=== PATIENT | male | born 1950 | race Caucasian/White ===

== ENCOUNTER 2021-10-09 07:16 | Inpatient (IN) | payer MEDICARE, SELFPAY ==
[2021-10-09] VITALS (20 sets, daily range): BP systolic 143–163; BP diastolic 57–82; PULSE 82–150; RESP 18–30; TEMP 35.9–36.4; O2SAT 87–98; BMI 26.3
--- NOTE | ~2021-10-09 | XR_ITS ---
EXAMINATION: XR chest 1V portable INDICATION: Cough TECHNIQUE: Portable AP chest at 0740 hours COMPARISON: None available FINDINGS: There are patchy airspace opacities throughout all lung zones. No pleural effusion or pneum othorax is identified. The heart size is normal. IMPRESSION: 1. Diffuse lung disease, likely pneumonia. Reviewed, dictated and finalized at location A. BUILDER SUPERVISOR
--- NOTE | ~2021-10-09 | XR_ITS ---
EXAMINATION: XR chest 1V portable DATE: 10/10/2021 15:07 INDICATION: Shortness of breath TECHNIQUE: frontal view of the chest was obtained. COMPARISON: Chest radiograph and CT dated 10/09/2021 FINDINGS: No interval change in diffuse patchy airspace opacities throughout both lungs. No pleural effusion or pneumothorax. The cardiomediastinal silhouette is normal. Visualized bones and soft tissues are unre markable. IMPRESSION: 1. Unchanged diffuse bilateral lung disease which could represent pneumonia and/or pulmonary edema. Reviewed, dictated and finalized at location A. CATTLE FARM MANAGER IMPRESSION: 1. Unchanged diffuse bilateral lung disease which could represent pneumonia and /or pulmonary edema.
--- NOTE | ~2021-10-09 | CT_ITS ---
EXAMINATION: CTA chest PE protocol DATE: 10/09/2021 09:45 INDICATION: Cough and hypoxia TECHNIQUE: Computed tomography angiography (CTA) of the chest was performed with 100 mL Omnipaque-350 intravenous contrast timed to evaluate the pulmonary arteries. Coronal maximum intensity projection 3D-reconstructions were created by the technologist. The dose-length product (DLP) was 284.02 mGy-cm. Automated exposure control and iterative reconstruction technique were employed. COMPARISON: None. FINDINGS: The pulmonary arteries are well-opacified. No pulmonary embolism is identified. There are g roundglass opacities throughout all lung zones. There is no pleural effusion or pneumothorax. There i s bilateral hilar and mediastinal lymphadenopathy. The heart size is normal. A small sliding hiatal h ernia is noted. IMPRESSION: 1. No pulmonary embolus. 2. Diffuse lung disease, consistent with pneumonia. Reviewed, dictated and finalized at location A. RONMENTAL INSPECTOR
--- NOTE | ~2021-10-09 | XR_ITS ---
EXAMINATION: XR chest 1V portable EXAM DATE: 10/16/2021 10:18 INDICATION: post covid pneumonia . TECHNIQUE: Portable AP frontal chest x-ray was obtained. Comparison is made to prior examination from 10/14/2021. FINDINGS: Moderate amount of patchy ill-defined bilateral airspace disease, consistent with COVID pne umonia. Difficult to appreciate any significant interval change in scope of disease, but there may be slightly more confluence to some opacified areas. There is no pneumothorax suspected. There are no p leural effusions. Cardiomediastinal silhouette is normal. There is aortic arteriosclerosis. There are no osseous abnormalities identified. IMPRESSION: Moderate amount of COVID pneumonia. Reviewed, dictated and finalized at location B. PREVENTION GUARD
--- NOTE | ~2021-10-09 | CT_ITS ---
EXAMINATION:CT diagnostic chest wo con DATE: 10/16/2021 08:13 INDICATION: Right middle lobe necrotizing pneumonia. TECHNIQUE: Computed tomography (CT) of the chest was performed without intravenous contrast. Automate d exposure control and iterative reconstruction technique were employed. The dose-length product (DLP ) was 287.37 mGy-cm. COMPARISON: Chest CT 10/09/2021 FINDINGS: Motion artifact is noted. There are airspace and groundglass opacities and septal thickenin g in all lobes. There are subpleural cystic areas in the upper lobes, likely emphysema given the smok ing history. No pleural effusion. The heart size is normal. There are coronary artery calcifications. No pericardial effusion. There is a small sliding hiatal hernia. There is a 6 mm cyst in the liver. There is mild thoracic spondylosis. IMPRESSION: 1. Diffuse lung disease with slight improvement in left upper lobe from 10/09/21. The differential [place] gnosis includes pneumonia (especially COVID-19 pneumonia), hypersensitivity pneumonitis, and nonspeci fic interstitial pneumonia. 2. Mild emphysema. 3. Small sliding hiatal hernia. Reviewed, dictated and finalized at location A. ET RISK ANALYST IMPRESSION: 1. Diffuse lung disease with slight improvement in left upper lobe from 10/09/21 . The differential diagnosis includes pneumonia (especially COVID-19 pneumonia) , hypersensitivity pneumonitis, and nonspecific interstitial pneumonia. 2. Mild emphysema. 3. Small sliding hiatal hernia.
--- NOTE | ~2021-10-09 | XR_ITS ---
XR chest 2V 10/14/2021 08:11 Indication: Shortness of breath. Interstitial lung disease. Procedure: PA and lateral views of the chest Comparison: 10/12/2021 Findings: Extensive patchy bilateral airspace disease, compatible with pneumonia. No pleural effusion or pneumothorax. No pneumothorax. No acute osseous abnormality. Impression: 1: Extensive patchy bilateral airspace disease, compatible with pneumonia. Reviewed, dictated and finalized at location A. Y PUSHER Impression: 1: Extensive patchy bilateral airspace disease, compatible with pneumonia.
--- NOTE | ~2021-10-09 | XR_ITS ---
EXAMINATION: XR chest 1V portable EXAM DATE: 10/12/2021 05:31 INDICATION: ILD . TECHNIQUE: Portable AP frontal chest x-ray was obtained. Comparison is made to prior examination from 10/10/2021. FINDINGS: Moderate amount of bilateral ill-defined airspace disease probably pneumonia correlating wi th prior CT scan 3 days ago. No significant interval change. Cardiomediastinal silhouette is normal. There is no pneumothorax suspected. There are no pleural effusions. There are no osseous abnormalitie s identified. There is aortic arteriosclerosis. IMPRESSION: Moderate amount of bilateral airspace disease probably pneumonia. Reviewed, dictated and finalized at location A. ING ASSISTANTS TEACHER
--- NOTE | 2021-10-09 07:34 | ECG_ITS ---
Measurements Intervals [place] Rate: 75 P: 50 ID: [id number] QRS: -28 QRSD: 84 T: 34 QT: 361 QTc: 405 Interpretive Statements SINUS RHYTHM WITH SINUS ARRHYTHMIA BASELINE ARTIFACT- II, III, AVR, AVF, V2-V6 NORMAL ECG Electronically Signed On 10-09-2021 8:57:51 VOCAL ARTIST by Lisandro Tsai D.O.
[2021-10-09 08:33] LABS: Basophils Absolute Auto 0.1 K/mm3 (0.0-0.1); Basophils Percent Auto 0.6 % (0.2-1.2); Eosinophils Absolute Auto 1.1 K/mm3 (0-0.3); Eosinophils Percent Auto 8.6 % (0-4.4); Hematocrit 35.8 % (42.0-52.0); Hemoglobin 11.8 g/dL (14.0-18.0); Immature Granulocyte Absolute 0.04 K/mm3 (0.00-0.031); Immature Granulocyte Percent A 0.3 % (0-0.5); Lymphocytes Absolute Auto 1.19 K/mm3 (0.9-3.2); Lymphocytes Percent Auto 9.7 % (18.3-44.2); Mean Platelet Volume 9.5 fl (7.4-10.4); Monocytes Absolute Auto 1.1 K/mm3 (0.1-0.6); Neutrophils Absolute Auto 8.8 K/mm3 (1.3-6.7); Neutrophils Percent Auto 71.8 % (45.5-73.1); Platelet Count Result 303 k/mm3 (150-375); Red Blood Count 3.81 M/mm3 (4.6-6.20); White Blood Count 12.3 K/mm3 (4.5-10.0)
[2021-10-09 08:36] LABS: Add Urine Microscopic? NO; Appearance Urine Clear (Clear); Bilirubin Urine Negative (Negative); Blood Urine Negative (Negative); Color Urine Straw (Yellow); Glucose Urine UA Negative (Negative); Ketones Urine Negative (Negative); Leukocyte Esterase Ur Negative LEU/UL (Negative); Nitrate Urine Negative (Negative); Protein Urine Negative (Negative); Specific Grav Ur 1.011 (1.001-1.035); Urobilinogen Urine Negative mg/dL (<2.0)
[2021-10-09 08:45] LABS: INR 1.2; Prothrombin Time 14.4 Seconds (11.1-14.7)
[2021-10-09 08:46] LABS: Partial Thromboplastin Time 35.2 SECONDS (22.3-36.8)
[2021-10-09 08:48] LABS: Lactic Acid Reflex 0.9 mmol/L (0.7-2.1)
[2021-10-09 08:49] LABS: Alanine Aminotransferase 27 U/L (4-50); Albumin Level 3.6 g/dL (3.5-5.1); Alkaline Phosphatase 75 U/L (38-126); Anion Gap 7 mmol/L (8-16); Aspartate Amino Transferase 49 U/L (17-59); Bilirubin,Total 0.8 mg/dL (0.2-1.3); Blood Urea Nitrogen 22 mg/dL (9-20); Calcium 8.2 mg/dL (8.4-10.2); Carbon Dioxide 23 mmol/L (22-30); Chloride 109 mmol/L (98-107); Estimated CRCL calculation 50 ml/min; Estimated Glomerular Filt Rate > 60; Glucose 109 mg/dL (65-110); Potassium 4.5 mmol/L (3.4-5.0); Sodium 139 mmol/L (137-145)
--- NOTE | 2021-10-09 08:57 | ED.GENADULT ---
HPI - General Adult General Chief complaint: Shortness of Breath/Dyspnea Stated complaint: COUGH, SOB Source: RN notes reviewed History of Present Illness HPI narrative: Patient presents emergency department from home for weakness. Patient states that he has had a dry cough for approximately 1 month that is been nonproductive states over the past 1 week he is becoming more weak and more short of breath worse with any activity he states that the last 3 days have been even more severe he denies any fevers or chills. States that he has chest pain with coughing only denies abdominal pain nausea vomiting or diarrhea. Patient is alert originally from [place] but has been up here working for [email or web address] Home Medications Medication Instructions Recorded Confirmed lisinopril 20 mg PO HS 10/09/21 10/09/21 Allergies Allergy/AdvReac Type Severity Reaction Status Date / Time No Known Allergies Allergy Verified 10/09/21 07:31 Review of Systems Review of Systems: Gen.: Denies fevers or chills ENT: Denies congestion Respiratory: See HPI CV: Reports chest pain with coughing GI: Denies abdominal pain nausea, emesis or diarrhea Musculoskeletal: Denies back pain or muscle pain Neuro: Reports weakness Skin: Denies rash Except as documented, all other systems reviewed and negative PMF Past Medical History Medical History (Updated 10/09/21 @ 10:10 by Roland Paez DO) Patient denies significant medical history Social History Social History (Updated 10/09/21 @ 09:59 by Roland Paez DO) Smoking status: Never smoker Exam Narrative: APPEARANCE: No acute distress, nontoxic, resting in bed EYES: EOMI HEENT: Normocephalic, atraumatic, OMM RESPIRATORY: No respiratory distress coarse breath sounds throughout the bilateral lung garcia no wheezing CARDIOVASCULAR: Regular rate and rhythm without murmurs rubs or gallops. ABDOMINAL: Soft, nontender, nondistended, no rebound or guarding MUSCULOSKELETAl: Moves all extremities. No clubbing, cyanosis or edema. NEURO: Awake and alert. Following commands, speech normal, no focal deficits SKIN:: Warm, dry. No rashes lesions or abrasions PSYCHIATRIC: Normal affect/mood, Course Course Emergency Course: Upon further discussion with the patient he states he did feel he is getting pneumonia about a week ago and had some old amoxicillin left over from a dental procedure and did take that with no relief Discussed with Dr. Adan presentation work-up agrees with admission at this time Discussed with patient and family results of workup and diagnosis. Discussed need for admission. Patient and family understand and agree to current treatment plan Vital Signs Vital signs: Vital Signs Temperature 97.5 F L 10/09/21 07:20 Pulse Rate 90 10/09/21 07:20 Respiratory Rate 30 H 10/09/21 07:20 Blood Pressure 159/77 H 10/09/21 07:20 Pulse Oximetry 96 10/09/21 07:20 Temperature 97.5 F L 10/09/21 07:20 Pulse Rate 82 10/09/21 09:01 Respiratory Rate 18 10/09/21 09:01 Blood Pressure 157/69 H 10/09/21 09:01 Pulse Oximetry 96 10/09/21 09:01 Medical Decision Making Vital Signs Vital Signs: Vital Signs Temperature 97.5 F L 10/09/21 07:20 Pulse Rate 90 10/09/21 07:20 Respiratory Rate 30 H 10/09/21 07:20 Blood Pressure 159/77 H 10/09/21 07:20 Pulse Oximetry 96 10/09/21 07:20 Temperature 97.5 F L 10/09/21 07:20 Pulse Rate 82 10/09/21 09:01 Respiratory Rate 18 10/09/21 09:01 Blood Pressure 157/69 H 10/09/21 09:01 Pulse Oximetry 96 10/09/21 09:01 Lab Data Result diagrams: 10/09/21 08:17 10/09/21 08:17 Labs: Lab Results 10/09/21 10/09/21 10/09/21 Range/Units 08:04 08:17 08:17 WBC 12.3 H (4.5-10.0) K/mm3 RBC 3.81 L (4.6-6.20) M/mm3 Hgb 11.8 L (14.0-18.0) g/dL Hct 35.8 L (42.0-52.0) % MCV 94.0 (80-100) fl MCH 31.0 (26-34) pg MCHC 33.0 (32-36) g/dl
[2021-10-09 09:00] LABS: NT Pro B Type Natriuretic Pept 807 pg/mL (5-100); Troponin I 0.019 ng/mL (0.000-0.034)
[2021-10-09 09:46] LABS: SARS-CoV-2 RNA PCR Negative
--- NOTE | 2021-10-09 11:47 | ADMGEN ---
This patient, Matthew Mcgraw, was admitted to 3 [facility] Surg Room 319-01 at 1140. Patient/family oriented to hospital policies and general routines including ID bracelet, bed and alarms, visiting hours, pain management, procedures, bathroom and other care routines, personal items, smoking policy, room service/diet, and visiting hours. Information on how to activate the Rapid Response Team has been discussed. Patient/Family are encouraged to report perceived risks to care and to ask questions if they do not understand what they are told or what they should do.
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
[2021-10-09 14:41] LABS: Troponin I 0.017 ng/mL (0.000-0.034)
[2021-10-09] MEDS: ALBUTEROL SULFATE (*SP) AEROSOL 1 PUFF 2 PUFF INHALATION (15:16)
[2021-10-09] MEDS: IPRATROPIUM BR 0.02% INH SOLN 0.5 MG/2.5 ML VIAL INHALATION (19:41)
[2021-10-09] MEDS: ALBUTEROL SULFATE NEB 2.5 MG/0.5 ML INH 5 MG INHALATION (19:41)
[2021-10-09] MEDS: lisinopriL 20 MG TABLET PO (23:15)
[2021-10-09] MEDS: guaiFENesin 12 HR 600 MG TABCR PO (23:45)
[2021-10-10] VITALS (23 sets, daily range): BP systolic 154–165; BP diastolic 72–78; PULSE 86–128; RESP 20–44; TEMP 36.3–37.4; O2SAT 77–100
[2021-10-10] MEDS: IPRATROPIUM BR 0.02% INH SOLN 0.5 MG/2.5 ML VIAL INHALATION ×4 (02:10→20:30)
[2021-10-10] MEDS: ALBUTEROL SULFATE NEB 2.5 MG/0.5 ML INH 5 MG INHALATION ×4 (02:10→20:30)
--- NOTE | 2021-10-10 02:58 | PCRCNOTE ---
Locker Room Supervisor attemtped to instruct patient on Coronet and Incentive Spirometer. Patient states he is too tired to mess with it right now and wants to wait until morning after he rests.
[2021-10-10 06:51] LABS: Basophils Percent Auto 0.3 % (0.2-1.2); Eosinophils Absolute Auto 0.1 K/mm3 (0-0.3); Eosinophils Percent Auto 0.9 % (0-4.4); Hematocrit 33.6 % (42.0-52.0); Hemoglobin 11.3 g/dL (14.0-18.0); Immature Granulocyte Absolute 0.08 K/mm3 (0.00-0.031); Immature Granulocyte Percent A 0.6 % (0-0.5); Lymphocytes Absolute Auto 0.94 K/mm3 (0.9-3.2); Lymphocytes Percent Auto 6.8 % (18.3-44.2); Mean Corpuscular HGB Conc 33.6 g/dl (32-36); Mean Corpuscular Hemoglobin 30.7 pg (26-34); Mean Corpuscular Volume 91.3 fl (80-100); Mean Platelet Volume 9.7 fl (7.4-10.4); Monocytes Percent Auto 7.5 % (2.6-8.5); Neutrophils Absolute Auto 11.6 K/mm3 (1.3-6.7); Neutrophils Percent Auto 83.9 % (45.5-73.1); Platelet Count Result 300 k/mm3 (150-375); Red Blood Count 3.68 M/mm3 (4.6-6.20); White Blood Count 13.8 K/mm3 (4.5-10.0)
[2021-10-10 07:00] LABS: Anion Gap 6 mmol/L (8-16); Blood Urea Nitrogen 21 mg/dL (9-20); Calcium 8.2 mg/dL (8.4-10.2); Carbon Dioxide 26 mmol/L (22-30); Chloride 103 mmol/L (98-107); Estimated CRCL calculation 46 ml/min; Estimated Glomerular Filt Rate > 60; Glucose 113 mg/dL (65-110); Magnesium 1.9 mg/dL (1.6-2.3); Potassium 4.3 mmol/L (3.4-5.0); Sodium 135 mmol/L (137-145)
[2021-10-10 07:58] LABS: HIV 1/2 Ab P24 Ag Result Negative (Negative)
[2021-10-10] MEDS: ENOXAPARIN 40 MG/0.4 ML SYRINGE SUB-Q (09:38)
[2021-10-10] MEDS: guaiFENesin/CODEINE (*CRX) 200/20 MG 10 ML SYRUP PO ×2 (09:44→14:33)
--- NOTE | 2021-10-10 14:00 | PM.IMPN ---
Progress Note: A&P Assessment and Plan (1) Acute respiratory failure with hypoxia: Code(s): J96.01 - Acute respiratory failure with hypoxia Status: Acute Assessment and Plan: Requiring oxygen via nasal cannula Related to diffuse pneumonia. Wean oxygen as tolerated (2) Community acquired pneumonia: Code(s): J18.9 - Pneumonia, unspecified organism Status: Acute Assessment and Plan: Presumed community-acquired pneumonia. He has been started on ceftriaxone and azithromycin. Given the extent of his pneumonia, the longevity of his symptoms, and eosinophilia pulmonary consulted. S sputum culture Urine for strep pneumo and Legionella Will also order mycoplasma IgG and IgM, hypersensitivity pneumonitis panel, rheumatoid arthritis factor QUINTIN, IgE COVID negative 10/09/2021 Will hold lisinopril and switch it to losartan (3) Hypertension: Code(s): I10 - Essential (primary) hypertension Status: Acute Assessment and Plan: Blood pressures were reviewed and they have been running a bit high. Continue lisinopril and monitor daily. Additional Plan Former smoker History of asthma: Check IgE level, aspergillus antibody Subjective Date/time seen: 10/10/21 14:00 Interval history: HPI:This is a 71-year-old male, former smoker, with hypertension and asthma who presented to the emergency department today for evaluation of shortness of breath. He endorses a dry, nonproductive cough for approximately 1 month for which he was tested for COVID approximately 2 weeks ago and was negative. The last 1 week he has begun to feel worse with progressive weakness, generalized malaise, subjective fever, headache, and decreased appetite. His cough has intensified over the past 3 days and he has frequent coughing jags to the point where he will get short of breath. Chest x-ray and chest CT both showed diffuse lung disease in all lung zones, likely pneumonia; no evidence of pulmonary embolism. SARS-CoV-2 by PCR was negative. He has been taking [id number] cold and flu medications without much benefit. He is in the area from [place] and is working at [employer]. He has not had any sick contacts to his knowledge. He denies chemical exposure, dysphagia, and concerns for aspiration. He has a history of IV drug use decades ago and has no concerns for HIV. He is not on immunosuppressants. No history of autoimmune disease. 10/10/2021 she continues to have productive cough, remains afebrile reports shortness of breath denies any chest pain Review of Systems Review of Systems: All systems reviewed & are unremarkable except as noted in HPI and below (HPI) Exam Narrative: General: Moderately ill-appearing gentleman, in mild distress due to persistent cough HEENT: PERRL, EOMI. Sclerae anicteric. Tacky mucous membranes. Oropharynx clear. Neck: Supple. No lymphadenopathy. No nuchal rigidity. Respiratory: Frequent cough. Coarse lung sounds throughout with faint, scattered wheezing. Cardiovascular: Mildly Tachycardic with regular rhythm and S1-S2. Gastrointestinal: Abdomen is soft, nontender, and nondistended with positive bowel sounds. Skin: Warm and dry. No rash or lesions on limited exam. Extremities: No cyanosis, clubbing, or edema. Radial and pedal pulses intact. Neurological: Alert. Cranial nerves 2-12 are grossly intact. No gross focal deficits Psychiatric: Pleasant and cooperative with normal mood and affect. Judgment and insight intact. Objective Data Vital Signs Vital Signs: Vital Signs - 24 hr 10/09/21 15:07 10/09/21 15:17 10/09/21 15:18 Temperature Pulse Rate 150 H 123 H Respiratory Rate 28 H 24 H Blood Pressure Pulse Oximetry 87 L 91 92 10/09/21 15:21 10/09/21 15:25 10/09/21 16:00 Temperature Pulse Rate 118 H Respiratory Rate Blood Pressure Pulse Oximetry 98 98 10/09/21 16:05 10/09/21 18:18 10/09/21 19:44 Temperature Pulse Rate 104 H Respirator
[2021-10-10 14:33] LABS: Rheumatoid Factor < 8.6 IU/ML (<12)
--- NOTE | 2021-10-10 14:42 | PM.CNPUL ---
Assessment and Plan Assessment and plan (1) Acute respiratory failure with hypoxia: Code(s): J96.01 - Acute respiratory failure with hypoxia Status: Acute (2) Interstitial lung disease: Code(s): J84.9 - Interstitial pulmonary disease, unspecified Status: Acute Assessment and Plan: 71-year-old man presented with a subacute illness characterized by dry cough, and progressively increasing shortness of breath, that started after a flu-like illness approximately 6 weeks ago prior to this admission. It is not clear whether this flu-like illness was related to COVID 19 infection as patient did not get tested. To my interpretation, the chest CT showed extensive bilateral ground-glass opacities with mild bronchiectatic changes, absence of reticulation, in a non symmetrical pattern, mostly at the bases and also the apices. In addition to these changes, there are thin-walled cystic lesions especially in the right upper lobe as well as few lucent areas at the bases bilaterally that suggest lobular air trapping. The ILD pattern on the chest CT suggests either NSIP or subacute hypersensitivity pneumonitis. In favor of hypersensitivity pneumonitis are the lucent areas that suggest lobular air trapping as well as the cystic lesions. 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 Plan is as follows: continue with current regimen consists of a antibiotics, DVT prophylaxis, and cough suppressants. I ordered HP panel as well as serology to exclude underlying connective tissue disease. Will consider expiratory chest CT to confirm presence of air trapping. History of Present Illness History of Present Illness Consult date: 10/10/21 Chief complaint: community-acquired pneumonia,acute respiratory fa Narrative: This 71-year-old male presented with 1 month history of dry cough and progressively increasing shortness of breath. The patient was in his usual state of health until approximately 6 weeks ago when he started having flu-like symptoms with low-grade fever and upper respiratory tract symptoms. He did not have a test for COVID 19 infection. The patient took time off his work and after a few days he returned to work because he felt better. Several days after the acute episode of the flu like illness the patient started having dry cough. He had no fever chills sputum production or wheezing. He tried cough medications [id number] with no improvement. Subsequently he started having shortness of breath initially with exertion. Shortness of breath was not associated with chest pain palpitations orthopnea or hemoptysis. His shortness of breath progressively increased and patient presented to the emergency room. His past medical history is significant for hypertension. He also has history of back pain and knee pain but no history of joint pain or arthritis. At his current workplace he is not exposed to any organic agents. 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 Over the last 2 weeks the patient was tested for COVID on an outpatient basis and reportedly he tested negative. The patient currently has been complaining of dry cough. He has no wheezing chest pain sputum production, fever, chills, or orthopnea. He stated that since he was started on oxygen he feels better. He used to smoke but quit many years ago. He also has history of drug use when younger. Review of Systems Review of Systems: Patient reports no weight loss. He has no orthopnea chest pain palpitations. He has no acid reflux disease. He has no nausea vomiting diarrhea constipation. He has no urinary complaints. He has no skin rashes. He has no history of lower extremity edema. He has some low back stiffness and some knee stiffness but no a.m. hand stiffness. . patient was vaccinated with 2 doses for COVID 19 infection with the 2nd
[2021-10-10 15:02] LABS: Alveolar/Arterial O2 Gradient 610.4 mmHg; Base Excess ABG -1.4 mEq/l (+/-2.0); Device NON-REBREATHER MASK; Fractional Inspired Oxygen 100 %; HCO3 ABG 21.3 mEq/l (22.0-26.0); Modified Allen's Test Pass; Oxygen Saturation ABG 95.7 % (95.0-100.0); Oxyhemoglobin 93.8 % THb (90.0-100.0); PCO2 ABG 29.8 mmHg (35.0-45.0); PO2 ABG 72.8 mmHg (80.0-100.0); PO2 FiO2 Ratio Arterial Blood 0.73 %; Site Drawn LEFT RADIAL; Total Hemoglobin 12.1 g/dL (12.0-18.0); pH ABG 7.472 (7.350-7.450)
[2021-10-10] MEDS: methylPREDNISolone SOD SUCC 125 MG VIAL IV PUSH (15:53)
[2021-10-10] MEDS: FUROSEMIDE INJ 40 MG/4 ML VIAL IV PUSH (15:53)
[2021-10-10 17:28] LABS: Lactate Dehydrogenase 1403 U/L (313-618)
[2021-10-10 17:32] LABS: CRP 23.1 mg/dL (<1.0)
[2021-10-10] MEDS: methylPREDNISolone SOD SUCC 125 MG VIAL 60 MG IV PUSH (20:42)
[2021-10-11] VITALS (21 sets, daily range): BP systolic 97–191; BP diastolic 68–79; PULSE 90–113; RESP 18–24; TEMP 35.6–36.4; O2SAT 90–98
--- NOTE | 2021-10-11 | ECHO_ITS ---
Patient Info Name: Matthew Mcgraw Age: 71 years : 1950 Gender: Male Ht: 64 in Wt: 151 lbs BSA: 1.77 m2 HR: 91 bpm BP: 167 / 73 mmHg Heart Rhythm: Sinus Rhythm Technical Quality: Fair Exam Date: 10/11/2021 12:58 PM Exam Location: [facility] Patient Status: Inpatient Admit Date: 10/10/2021 Staff Ordering Physician: Antonio Adan MD Process Project Engineer: Miracle Bradley RDCS Attending Provider: Antonio Adan MD Exam Type: CA echo doppler color flow Study Info Indications - Shortness of breath Complete two-dimensional, color flow and Doppler transthoracic echocardiogram is performed. Summary 1. Complete two-dimensional, color flow and Doppler transthoracic echocardiogram is performed. 2. Left ventricular chamber dimension is normal. 3. Left ventricular systolic function is normal, estimated at 60-65%. 4. The left ventricular diastolic function is grade I diastolic dysfunction. 5. E/e' 8 is minimally elevated. 6. There is mild aortic valve sclerosis. 7. Mild pulmonary hypertension, estimated pulmonary arterial systolic pressure is 45 mmHg. Left Ventricle E/e' 8 is minimally elevated. Left ventricular chamber dimension is normal. Left ventricular systolic function is normal, estimated at 60-65%. The left ventricular diastolic function is grade I diastolic dysfunction. Right Ventricle Right ventricular systolic function is normal and with normal TAPSE 2.4 cm. Right ventricular chamber dimension is normal. Left Atria Left atrial chamber dimension is normal. Right Atria Right atrial chamber dimension is normal. Aortic Valve The aortic valve is trileaflet. There is mild aortic valve sclerosis. There is no aortic valve stenosis. There is no aortic valve regurgitation. Pulmonic Valve There is no pulmonic regurgitation. Mitral Valve There is no mitral valve stenosis. There is no mitral valve regurgitation. Tricuspid Valve There is no tricuspid valve regurgitation. Mild pulmonary hypertension, estimated pulmonary arterial systolic pressure is 45 mmHg. Pericardium/Pleural There is no pericardial effusion. Inferior Vena Cava Normal inferior vena cava with >50% collapse upon inspiration consistent with normal right atrial pressure, 5 mmHg. Aorta The aortic root size at the sinus of Valsalva is normal. Left Ventricular Outflow Tract Name Value Normal LVOT 2D LVOT Diameter 2.0 cm LVOT Doppler LVOT Peak Gradient 8 mmHg LVOT Mean Gradient 3 mmHg LVOT VTI 23 cm LVOT VTI/AV VTI Ratio 0.8 LVOT Stroke Volume 69 ml LVOT CO 6.3 l/min LVOT CI 3.6 l/min/m2 Pulmonic Valve Name Value Normal RVOT Doppler
[2021-10-11] MEDS: methylPREDNISolone SOD SUCC 125 MG VIAL 60 MG IV PUSH ×3 (00:14→17:26)
[2021-10-11 00:24] LABS: Glucose Point of Care 288 mg/dl (65-105)
[2021-10-11] MEDS: ALBUTEROL SULFATE NEB 2.5 MG/0.5 ML INH 5 MG INHALATION ×4 (02:00→19:41)
[2021-10-11] MEDS: IPRATROPIUM BR 0.02% INH SOLN 0.5 MG/2.5 ML VIAL INHALATION ×4 (02:00→19:41)
[2021-10-11] MEDS: WATER FOR IRRIGATION, STERILE 1,000 ML BOTTLE 1000 ML (03:11)
[2021-10-11 04:37] LABS: Basophils Percent Auto 0.1 % (0.2-1.2); Hematocrit 34.6 % (42.0-52.0); Hemoglobin 11.5 g/dL (14.0-18.0); Immature Granulocyte Absolute 0.07 K/mm3 (0.00-0.031); Immature Granulocyte Percent A 0.7 % (0-0.5); Lymphocytes Absolute Auto 0.65 K/mm3 (0.9-3.2); Lymphocytes Percent Auto 6.3 % (18.3-44.2); Mean Corpuscular HGB Conc 33.2 g/dl (32-36); Mean Corpuscular Hemoglobin 30.5 pg (26-34); Mean Corpuscular Volume 91.8 fl (80-100); Mean Platelet Volume 9.5 fl (7.4-10.4); Monocytes Absolute Auto 0.2 K/mm3 (0.1-0.6); Monocytes Percent Auto 1.6 % (2.6-8.5); Neutrophils Absolute Auto 9.5 K/mm3 (1.3-6.7); Neutrophils Percent Auto 91.3 % (45.5-73.1); Platelet Count Result 295 k/mm3 (150-375); Red Blood Count 3.77 M/mm3 (4.6-6.20); White Blood Count 10.4 K/mm3 (4.5-10.0)
[2021-10-11 04:55] LABS: Alanine Aminotransferase 25 U/L (4-50); Albumin Level 3.5 g/dL (3.5-5.1); Alkaline Phosphatase 72 U/L (38-126); Anion Gap 7 mmol/L (8-16); Aspartate Amino Transferase 44 U/L (17-59); Blood Urea Nitrogen 30 mg/dL (9-20); Calcium 8.5 mg/dL (8.4-10.2); Carbon Dioxide 28 mmol/L (22-30); Chloride 101 mmol/L (98-107); Estimated CRCL calculation 55 ml/min; Estimated Glomerular Filt Rate > 60; Glucose 297 mg/dL (65-110); Potassium 4.5 mmol/L (3.4-5.0); Sodium 136 mmol/L (137-145)
[2021-10-11] MEDS: ACETAMINOPHEN/CODEINE ELIXIR (*CRX) 120-12 MG/5 ML UDC PO (08:45)
[2021-10-11] MEDS: ENOXAPARIN 40 MG/0.4 ML SYRINGE SUB-Q (08:47)
--- NOTE | 2021-10-11 09:49 | PM.PNPUL ---
Progress Note: A&P Assessment and Plan (1) Interstitial lung disease: Code(s): J84.9 - Interstitial pulmonary disease, unspecified Status: Acute Assessment and Plan: 71-year-old man presented with a subacute illness characterized by dry cough, and progressively increasing shortness of breath, that started after a flu-like illness approximately 6 weeks ago prior to this admission. It is not clear whether this flu-like illness was related to COVID 19 infection as patient did not get tested. Chest CT showed bilateral extensive ground-glass infiltrates, with mild bronchiectatic changes, rare cystic lesions, and also lesions consistent with lobular air trapping. The patient has had long history of woodworking. on the basis of the patient's history, the subacute tempo of the disease, and the chest CT findings, the differential diagnosis includes hypersensitivity pneumonitis, NSIP and less likely organizing pneumonia post COVID. Patient has been on antibiotics for possible bacterial coinfection. Chest x-ray taken last night showed no significant change. physical exam is also unchanged from yesterday. Immunology tests and serology screening pending. Agree with steroid treatment. Will continue with current IV dose for today and decrease it in a.m.. (2) Acute respiratory failure with hypoxia: Code(s): J96.01 - Acute respiratory failure with hypoxia Status: Acute Subjective Date/time seen: 10/11/21 09:49 Patient had intense cough last night. oxygen flow increased to maintain O2 saturation over 90%. Patient was started on IV steroids by the hospitalist. Currently he feels better. cough a lot less this morning. He has no other respiratory symptoms. No fever chills or wheezing. He denied having chest pain or orthopnea. Review of Systems Review of Systems: All systems reviewed & are unremarkable except as noted in HPI and below (HPI) Exam Narrative: GENERAL APPEARANCE: Well developed, well nourished, alert and cooperative, and appears to be in mild respiratory distress related to constant coughing while on supplemental oxygen via nasal cannula SKIN: Inspection of the skin reveals no rashes, ulcerations or petechiae. HEENT: Sclerae anicteric and conjunctivae pink and moist. Extraocular movements were intact and pupils were equal, round, and reactive to light. The oral mucosa, hard and soft palate, tongue and posterior pharynx were normal. NECK: Supple. There was no thyroid enlargement, and no tenderness, or masses were felt. CHEST: Normal AP diameter and normal contour without any kyphoscoliosis. LUNGS: crackles at bases posteriorly no wheezing CARDIAC: There was a regular rate and rhythm without any murmurs, gallops, rubs. ABDOMEN: Soft and nontender with normal bowel sounds. There was no organomegaly. LYMPH NODES: No lymphadenopathy was appreciated in the neck. EXTREMITIES: No cyanosis, clubbing or edema. NEUROLOGIC: Alert and oriented x 3. Normal affect. Objective Data Vital Signs Vital Signs: Vital Signs - 24 hr 10/10/21 12:00 10/10/21 13:58 10/10/21 14:00 Temperature 36.7 C Pulse Rate 91 105 H 128 H Respiratory Rate 24 H 22 H Blood Pressure 154/78 H Pulse Oximetry 90 10/10/21 14:40 10/10/21 14:41 10/10/21 14:45 Temperature Pulse Rate 123 H Respiratory Rate Blood Pressure Pulse Oximetry 77 L 89 L 95 10/10/21 15:15 10/10/21 15:58 10/10/21 16:00 Temperature Pulse Rate 116 H 123 H 117 H Respiratory Rate 24 H Blood Pressure Pulse Oximetry 96 100 10/10/21 17:05 10/10/21 20:00 10/10/21 20:24 Temperature 36.3 C L Pulse Rate 97 97 Respiratory Rate 20 20 Blood Pressure 162/74 H Pulse Oximetry 94 98 98 10/10/21 20:30 10/10/21 20:40 10/11/21 00:00 Temperature Pulse Rate 86 86 94 Respiratory Rate 24 H 24 H Blood Pressure Pulse Oximetry 94 10/11/21 00:38 10/11/21 00:52 10/11/21 02:00 Temperature 35.6 C L Pulse
--- NOTE | 2021-10-11 11:29 | PM.IMPN ---
Progress Note: A&P Assessment and Plan (1) Acute respiratory failure with hypoxia: Code(s): J96.01 - Acute respiratory failure with hypoxia Status: Acute Assessment and Plan: Requiring oxygen via nasal cannula Related to diffuse pneumonia. Wean oxygen as tolerated Needed BiPAP temporarily 10/10/2021 now off and on high-flow oxygen nasal cannula requiring 15 L yesterday down to 90 today Will check echo (2) Community acquired pneumonia: Code(s): J18.9 - Pneumonia, unspecified organism Status: Acute Assessment and Plan: Presumed community-acquired pneumonia. He has been started on ceftriaxone and azithromycin. Given the extent of his pneumonia, the longevity of his symptoms, and eosinophilia pulmonary consulted. S sputum culture Urine for strep pneumo and Legionella Will also order mycoplasma IgG and IgM, hypersensitivity pneumonitis panel, rheumatoid arthritis factor QUINTIN, IgE COVID negative 10/09/2021 Will hold lisinopril and switch it to losartan. He did not receive losartan yesterday will start from this morning pressure and elevated His and family markers with LDH CRP ferritin are elevated (3) Hypertension: Code(s): I10 - Essential (primary) hypertension Status: Acute Assessment and Plan: Blood pressures were reviewed and they have been running a bit high. Continue lisinopril and monitor daily. Switched to losartan Additional Plan Former smoker History of asthma: Check IgE level, aspergillus antibody Subjective Date/time seen: 10/11/21 11:29 Interval history: HPI:This is a 71-year-old male, former smoker, with hypertension and asthma who presented to the emergency department today for evaluation of shortness of breath. He endorses a dry, nonproductive cough for approximately 1 month for which he was tested for COVID approximately 2 weeks ago and was negative. The last 1 week he has begun to feel worse with progressive weakness, generalized malaise, subjective fever, headache, and decreased appetite. His cough has intensified over the past 3 days and he has frequent coughing jags to the point where he will get short of breath. Chest x-ray and chest CT both showed diffuse lung disease in all lung zones, likely pneumonia; no evidence of pulmonary embolism. SARS-CoV-2 by PCR was negative. He has been taking [id number]-gfnwipl cold and flu medications without much benefit. He is in the area from [place] and is working at [employer]. He has not had any sick contacts to his knowledge. He denies chemical exposure, dysphagia, and concerns for aspiration. He has a history of IV drug use decades ago and has no concerns for HIV. He is not on immunosuppressants. No history of autoimmune disease. 10/10/2021 she continues to have productive cough, remains afebrile reports shortness of breath denies any chest pain 10/11/2021 no overnight events. He is feeling lot better today cough has improved he Peed out quite a bit yesterday no chest pain heart rate has improved use BiPAP for an hour or so yesterday Review of Systems Review of Systems: All systems reviewed & are unremarkable except as noted in HPI and below (HPI) Exam Narrative: General: Moderately ill-appearing gentleman, in no acute distress HEENT: PERRL, EOMI. Sclerae anicteric. Tacky mucous membranes. Oropharynx clear. Neck: Supple. No lymphadenopathy. No nuchal rigidity. Respiratory: Cough is infrequent today Coarse lung sounds throughout no wheezes no conversational dyspnea noted Cardiovascular: Mildly Tachycardic with regular rhythm and S1-S2. Gastrointestinal: Abdomen is soft, nontender, and nondistended with positive bowel sounds. Skin: Warm and dry. No rash or lesions on limited exam. Extremities: No cyanosis, clubbing, or edema. Radial and pedal pulses intact. Neurological: Alert. Cranial nerves 2-12 are grossly intact. No gross focal deficits Psychiatric: Pleasant and cooperative with normal mood and affect. [place]
[2021-10-11] MEDS: LOSARTAN POTASSIUM 50 MG TABLET PO (14:37)
--- NOTE | 2021-10-11 14:51 | PCCCNOTE ---
On 10/11/21, the student, Lilo Snow, provided care and completed [facility] documentation on this patient. I have reviewed the student's documentation and agree with the findings.
--- NOTE | 2021-10-11 19:48 | PCRCNOTE ---
Pt does not use CPAP or BiPAP at home, was placed on BiPAP for respiratory distress earlier in hospital stay. Pt is currently resting comfortably on 8L HFNC and does not require BiPAP support. Pt was advised to let his nurse know if he begins to feel any shortness of breath so that the nurse can contact Respiratory to evaluate and potentially place pt on BiPAP.
[2021-10-12] VITALS (24 sets, daily range): BP systolic 114–154; BP diastolic 33–74; PULSE 85–110; RESP 14–28; TEMP 35.5–36.5; O2SAT 91–99
[2021-10-12] MEDS: ACETAMINOPHEN/CODEINE ELIXIR (*CRX) 120-12 MG/5 ML UDC PO (00:23)
[2021-10-12] MEDS: IPRATROPIUM BR 0.02% INH SOLN 0.5 MG/2.5 ML VIAL INHALATION ×4 (02:35→19:48)
[2021-10-12] MEDS: ALBUTEROL SULFATE NEB 2.5 MG/0.5 ML INH 5 MG INHALATION ×4 (02:35→19:48)
[2021-10-12 04:49] LABS: Basophils Percent Auto 0.1 % (0.2-1.2); Hematocrit 34.1 % (42.0-52.0); Hemoglobin 11.2 g/dL (14.0-18.0); Immature Granulocyte Absolute 0.14 K/mm3 (0.00-0.031); Immature Granulocyte Percent A 0.7 % (0-0.5); Lymphocytes Absolute Auto 0.88 K/mm3 (0.9-3.2); Lymphocytes Percent Auto 4.3 % (18.3-44.2); Mean Corpuscular HGB Conc 32.8 g/dl (32-36); Mean Corpuscular Hemoglobin 30.8 pg (26-34); Mean Corpuscular Volume 93.7 fl (80-100); Mean Platelet Volume 9.8 fl (7.4-10.4); Monocytes Absolute Auto 0.9 K/mm3 (0.1-0.6); Monocytes Percent Auto 4.5 % (2.6-8.5); Neutrophils Absolute Auto 18.7 K/mm3 (1.3-6.7); Neutrophils Percent Auto 90.4 % (45.5-73.1); Platelet Count Result 328 k/mm3 (150-375); Red Blood Count 3.64 M/mm3 (4.6-6.20); Red Cell Distribution Width 12.2 % (11.5-14.5); White Blood Count 20.7 K/mm3 (4.5-10.0)
[2021-10-12 05:02] LABS: Alanine Aminotransferase 28 U/L (4-50); Albumin Level 3.4 g/dL (3.5-5.1); Alkaline Phosphatase 71 U/L (38-126); Anion Gap 7 mmol/L (8-16); Aspartate Amino Transferase 36 U/L (17-59); Bilirubin,Total 0.5 mg/dL (0.2-1.3); Blood Urea Nitrogen 38 mg/dL (9-20); Calcium 8.7 mg/dL (8.4-10.2); Carbon Dioxide 28 mmol/L (22-30); Chloride 104 mmol/L (98-107); Estimated CRCL calculation 46 ml/min; Estimated Glomerular Filt Rate > 60; Glucose 241 mg/dL (65-110); Magnesium 2.2 mg/dL (1.6-2.3); Sodium 139 mmol/L (137-145)
[2021-10-12] MEDS: ENOXAPARIN 40 MG/0.4 ML SYRINGE SUB-Q (08:40)
[2021-10-12] MEDS: LOSARTAN POTASSIUM 50 MG TABLET PO (08:41)
[2021-10-12] MEDS: methylPREDNISolone SOD SUCC 125 MG VIAL 60 MG IV PUSH (08:41)
[2021-10-12 08:56] LABS: Glucose Point of Care 171 mg/dl (65-105)
--- NOTE | 2021-10-12 11:46 | PM.IMPN ---
Progress Note: A&P Assessment and Plan (1) Acute respiratory failure with hypoxia: Code(s): J96.01 - Acute respiratory failure with hypoxia Status: Acute Assessment and Plan: Requiring oxygen via nasal cannula Related to diffuse pneumonia. Wean oxygen as tolerated Needed BiPAP temporarily 10/10/2021 now off and on high-flow oxygen nasal cannula requiring 15 L yesterday down to 90 today Echocardiogram reviewed 10/11/2021: EF 60-65% grade 1 diastolic dysfunction E by E prime minimally elevated mild aortic sclerosis mild pulmonary hypertension no other valvular abnormalities noted. (2) Community acquired pneumonia: Code(s): J18.9 - Pneumonia, unspecified organism Status: Acute Assessment and Plan: Presumed community-acquired pneumonia. He has been started on ceftriaxone and azithromycin. Given the extent of his pneumonia, the longevity of his symptoms, and eosinophilia pulmonary consulted. S sputum culture Urine for strep pneumo and Legionella Will also order mycoplasma IgG and IgM, hypersensitivity pneumonitis panel, rheumatoid arthritis factor QUINTIN, IgE COVID negative 10/09/2021 Will hold lisinopril and switch it to losartan. Since start of losartan blood pressure has been improved His and family markers with LDH CRP ferritin are elevated Leukocytosis worsened today likely due to steroid. Continue to monitor and recheck in the morning clinically improving (3) Hypertension: Code(s): I10 - Essential (primary) hypertension Status: Acute Assessment and Plan: Blood pressures were reviewed and they have been running a bit high. Continue lisinopril and monitor daily. Switched to losartan Blood pressure is improved since start of losartan Additional Plan Former smoker History of asthma: Check IgE level, aspergillus antibody All inflammatory markers and panel is been pending reviewed labs Will move him to medical floor with telemetry today Discussed with philosophy professor at bedside Subjective Date/time seen: 10/12/21 11:46 Interval history: HPI:This is a 71-year-old male, former smoker, with hypertension and asthma who presented to the emergency department today for evaluation of shortness of breath. He endorses a dry, nonproductive cough for approximately 1 month for which he was tested for COVID approximately 2 weeks ago and was negative. The last 1 week he has begun to feel worse with progressive weakness, generalized malaise, subjective fever, headache, and decreased appetite. His cough has intensified over the past 3 days and he has frequent coughing jags to the point where he will get short of breath. Chest x-ray and chest CT both showed diffuse lung disease in all lung zones, likely pneumonia; no evidence of pulmonary embolism. SARS-CoV-2 by PCR was negative. He has been taking gatw-zzr-drcfgfn cold and flu medications without much benefit. He is in the area from [place] and is working at [employer]. He has not had any sick contacts to his knowledge. He denies chemical exposure, dysphagia, and concerns for aspiration. He has a history of IV drug use decades ago and has no concerns for HIV. He is not on immunosuppressants. No history of autoimmune disease. 10/10/2021 she continues to have productive cough, remains afebrile reports shortness of breath denies any chest pain 10/11/2021 no overnight events. He is feeling lot better today cough has improved he Peed out quite a bit yesterday no chest pain heart rate has improved use BiPAP for an hour or so yesterday 10/12/2021 no overnight events. Feeling better. Oxygen level has improved he is down to 7 L per currently. Denies any chest pain is still has intermittent cough and shortness of breath and tiredness on exertion. Has not required any BiPAP since day before yesterday. Review of Systems Review of Systems: All systems reviewed & are unremarkable except as noted in HPI and below (HPI) Exam Narrative: General: [place]
[2021-10-12 12:27] LABS: Glucose Point of Care 248 mg/dl (65-105)
--- NOTE | 2021-10-12 12:32 | PC.NURSE ---
Patient's blood sugar checked at 1224 before patient's lunch. Glucose results read 248. Patient refusing insulin administration at this time. He states you better not bring any insulin in this room because I don't want any of that stuff , I came in here for my pneumonia and now you guys are looking at my heart and treating me for diabetes, I only want to be treated for my pneumonia then go home . Education provided and additional teaching given to patient. MD updated and aware.
--- NOTE | 2021-10-12 12:35 | PM.PNPUL ---
Progress Note: A&P Assessment and Plan (1) Interstitial lung disease: Code(s): J84.9 - Interstitial pulmonary disease, unspecified Status: Acute Assessment and Plan: 71-year-old man presented with a subacute illness characterized by dry cough, and progressively increasing shortness of breath, that started after a flu-like illness approximately 6 weeks ago prior to this admission. It is not clear whether this flu-like illness was related to COVID 19 infection as patient did not get tested. Chest CT showed bilateral extensive ground-glass infiltrates, with mild bronchiectatic changes, rare cystic lesions, and also lesions consistent with lobular air trapping. The patient has had long history of woodworking. on the basis of the patient's history, the subacute tempo of the disease, and the chest CT findings, the differential diagnosis includes hypersensitivity pneumonitis, NSIP and also organizing pneumonia post COVID. Patient has been on antibiotics for possible bacterial coinfection. Chest x-ray taken today showed no significant change. physical exam is also unchanged from yesterday. Immunology tests and serology screening pending. Agree with steroid treatment. Will continue with current IV dose for today and decrease it in a.m.. CRP pending. Case was discussed with the hospitalist. (2) Acute respiratory failure with hypoxia: Code(s): J96.01 - Acute respiratory failure with hypoxia Status: Acute Subjective Date/time seen: 10/12/21 12:35 Patient has no new respiratory complaints. Cough significantly improved. Has small amount of clear phlegm. Oxygen flow has decreased down to 7 liters/minute. He has been afebrile. Review of Systems Review of Systems: All systems reviewed & are unremarkable except as noted in HPI and below (HPI) Exam Narrative: GENERAL APPEARANCE: Well developed, well nourished, alert and cooperative, and appears to be in mild respiratory distress while on supplemental oxygen via nasal cannula SKIN: Inspection of the skin reveals no rashes, ulcerations or petechiae. HEENT: Sclerae anicteric and conjunctivae pink and moist. Extraocular movements were intact and pupils were equal, round. NECK: Supple. There was no thyroid enlargement, and no tenderness, or masses were felt. CHEST: Normal AP diameter and normal contour without any kyphoscoliosis. LUNGS: crackles at bases posteriorly no wheezing. CARDIAC: There was a regular rate and rhythm without any murmurs, gallops, rubs. ABDOMEN: Soft and nontender with normal bowel sounds. There was no organomegaly. LYMPH NODES: No lymphadenopathy was appreciated in the neck. EXTREMITIES: No cyanosis, clubbing or edema. NEUROLOGIC: Alert and oriented x 3. Normal affect. Objective Data Vital Signs Vital Signs: Vital Signs - 24 hr 10/11/21 13:59 10/11/21 16:00 10/11/21 19:41 Temperature 36.4 C 35.9 C L Pulse Rate 92 105 H 98 Respiratory Rate 22 H 20 20 Blood Pressure 97/76 L 145/68 H Pulse Oximetry 93 90 10/11/21 19:50 10/11/21 20:00 10/11/21 21:10 Temperature 35.9 C L Pulse Rate 104 H 113 H 98 Respiratory Rate 22 H 20 Blood Pressure 145/68 H Pulse Oximetry 95 90 10/11/21 23:47 10/11/21 23:58 10/12/21 00:00 Temperature 36.1 C L Pulse Rate 99 95 Respiratory Rate 18 Blood Pressure 142/79 H Pulse Oximetry 97 94 10/12/21 02:35 10/12/21 03:01 10/12/21 03:52 Temperature Pulse Rate 85 87 Respiratory Rate 22 H 20 Blood Pressure Pulse Oximetry 97 10/12/21 04:00 10/12/21 05:00 10/12/21 05:27 Temperature 35.8 C L Pulse Rate 93 101 H 105 H Respiratory Rate 18 Blood Pressure 131/66 Pulse Oximetry 97 10/12/21 08:00 10/12/21 08:28 10/12/21 08:36 Temperature 35.5 C L Pulse Rate 92 99 98 Respiratory Rate 28 H 24 H 20 Blood Pressure 147/33 H Pulse Oximetry 94 91 10/12/21 10:00 10/12/21 10:53 10/12/21 12:00 Temperature Pulse Rate 100 94 Respiratory Ra
--- NOTE | 2021-10-12 14:03 | PC.NURSE ---
SBAR faxed to receiving unit at 1350. Patient to go to 3 med-surg room 316.
--- NOTE | 2021-10-12 14:20 | PC.NURSE ---
Report given to MART Bonner with 3 med-surg at 1420. All questions answered and plan of care reviewed. Patient to go to room 316.
--- NOTE | 2021-10-12 14:54 | PC.NURSE ---
Patient transferred from IMU to 3rd Med/Surg bed 316. Report given by Ruth CEVALLOS. Call light in reach, patient reports having no pain, systems assessment completed and as per flowsheets.
[2021-10-12 17:09] LABS: Glucose Point of Care 234 mg/dl (65-105)
--- NOTE | 2021-10-12 17:52 | PC.NURSE ---
Patients home medications brought with patient to receiving unit at 1445 and handed to oncoming RN.
[2021-10-12 18:43] LABS: CRP 7.5 mg/dL (<1.0)
--- NOTE | 2021-10-12 18:53 | PC.NURSE ---
Patient refusing insulin and steroids. He was educated on why they were ordered and told RN he doesn't care when he was warned of potential negative effects of not taking them.
[2021-10-12 20:09] LABS: Pneumococcal Antigen Urine Not Detected (Not Detected)
[2021-10-12 20:41] LABS: JO 1 Antibody <1.0
[2021-10-13] VITALS (18 sets, daily range): BP systolic 128–147; BP diastolic 57–75; PULSE 74–110; RESP 16–20; TEMP 36.2–36.8; O2SAT 93–96
[2021-10-13] MEDS: IPRATROPIUM BR 0.02% INH SOLN 0.5 MG/2.5 ML VIAL INHALATION ×4 (02:05→20:03)
[2021-10-13] MEDS: ALBUTEROL SULFATE NEB 2.5 MG/0.5 ML INH 5 MG INHALATION ×4 (02:05→20:03)
[2021-10-13 05:35] LABS: Basophils Percent Auto 0.1 % (0.2-1.2); Hematocrit 33.1 % (42.0-52.0); Hemoglobin 10.7 g/dL (14.0-18.0); Immature Granulocyte Absolute 0.09 K/mm3 (0.00-0.031); Immature Granulocyte Percent A 0.5 % (0-0.5); Lymphocytes Absolute Auto 1.86 K/mm3 (0.9-3.2); Lymphocytes Percent Auto 9.8 % (18.3-44.2); Mean Corpuscular HGB Conc 32.3 g/dl (32-36); Mean Corpuscular Hemoglobin 30.7 pg (26-34); Mean Corpuscular Volume 94.8 fl (80-100); Mean Platelet Volume 9.6 fl (7.4-10.4); Monocytes Absolute Auto 1.5 K/mm3 (0.1-0.6); Monocytes Percent Auto 8.1 % (2.6-8.5); Neutrophils Absolute Auto 15.5 K/mm3 (1.3-6.7); Neutrophils Percent Auto 81.5 % (45.5-73.1); Platelet Count Result 335 k/mm3 (150-375); Red Blood Count 3.49 M/mm3 (4.6-6.20); Red Cell Distribution Width 12.4 % (11.5-14.5)
[2021-10-13 05:48] LABS: Alanine Aminotransferase 32 U/L (4-50); Albumin Level 3.3 g/dL (3.5-5.1); Alkaline Phosphatase 67 U/L (38-126); Anion Gap 5 mmol/L (8-16); Aspartate Amino Transferase 37 U/L (17-59); Bilirubin,Total 0.5 mg/dL (0.2-1.3); Blood Urea Nitrogen 30 mg/dL (9-20); Calcium 8.3 mg/dL (8.4-10.2); Carbon Dioxide 28 mmol/L (22-30); Chloride 103 mmol/L (98-107); Estimated CRCL calculation 55 ml/min; Estimated Glomerular Filt Rate > 60; Glucose 148 mg/dL (65-110); Potassium 3.8 mmol/L (3.4-5.0); Sodium 136 mmol/L (137-145)
[2021-10-13] MEDS: ENOXAPARIN 40 MG/0.4 ML SYRINGE SUB-Q (09:21)
[2021-10-13] MEDS: LOSARTAN POTASSIUM 50 MG TABLET PO (09:21)
--- NOTE | 2021-10-13 09:41 | PM.PNPUL ---
Progress Note: A&P Assessment and Plan (1) Interstitial lung disease: Code(s): J84.9 - Interstitial pulmonary disease, unspecified Status: Acute Assessment and Plan: 71-year-old man presented with a subacute illness characterized by dry cough, and progressively increasing shortness of breath, that started after a flu-like illness approximately 6 weeks ago prior to this admission. It is not clear whether this flu-like illness was related to COVID 19 infection as patient did not get tested. Chest CT showed bilateral extensive ground-glass infiltrates, with mild bronchiectatic changes, rare cystic lesions, and also lesions consistent with lobular air trapping. The patient has had long history of woodworking. on the basis of the patient's history, the subacute tempo of the disease, and the chest CT findings, the differential diagnosis includes hypersensitivity pneumonitis, NSIP and also organizing pneumonia post COVID. Patient has been on antibiotics for possible bacterial coinfection. Chest x-ray taken today showed no significant change. physical exam is also unchanged from yesterday. Yanet 1 antibody negative other immunology tests and serology screening pending. CRP decreased significantly. Will continue with Solu-Medrol 60 mg IV daily starting in a.m.. CXR in am. (2) Acute respiratory failure with hypoxia: Code(s): J96.01 - Acute respiratory failure with hypoxia Status: Acute Subjective Date/time seen: 10/13/21 09:41 Patient stated his breathing is getting better. He has had more cough with clear sputum production. He has no fever chills hemoptysis or wheezing. Oxygen flow decreased down to 5 liters/minute Review of Systems Review of Systems: All systems reviewed & are unremarkable except as noted in HPI and below (HPI) Exam Narrative: GENERAL APPEARANCE: Well developed, well nourished, alert and cooperative, and appears to be in mild respiratory distress while on supplemental oxygen via nasal cannula SKIN: Inspection of the skin reveals no rashes, ulcerations or petechiae. HEENT: Sclerae anicteric and conjunctivae pink and moist. Extraocular movements were intact and pupils were equal, round. NECK: Supple. There was no thyroid enlargement, and no tenderness, or masses were felt. CHEST: Normal AP diameter and normal contour without any kyphoscoliosis. LUNGS: crackles at bases posteriorly no wheezing. CARDIAC: There was a regular rate and rhythm without any murmurs, gallops, rubs. ABDOMEN: Soft and nontender with normal bowel sounds. There was no organomegaly. LYMPH NODES: No lymphadenopathy was appreciated in the neck. EXTREMITIES: No cyanosis, clubbing or edema. NEUROLOGIC: Alert and oriented x 3. Normal affect. Objective Data Vital Signs Vital Signs: Vital Signs - 24 hr 10/12/21 10:00 10/12/21 10:53 10/12/21 12:00 Temperature 36.4 C Pulse Rate 100 102 H Respiratory Rate 24 H Blood Pressure 151/74 H Pulse Oximetry 97 97 10/12/21 12:40 10/12/21 13:04 10/12/21 13:40 Temperature Pulse Rate 100 Respiratory Rate 24 H Blood Pressure Pulse Oximetry 98 98 10/12/21 13:47 10/12/21 14:00 10/12/21 14:50 Temperature 36.5 C Pulse Rate 102 H 110 H 110 H Respiratory Rate 22 H 14 Blood Pressure 154/67 H Pulse Oximetry 94 10/12/21 14:56 10/12/21 16:00 10/12/21 20:00 Temperature Pulse Rate 108 H 108 H Respiratory Rate 20 Blood Pressure Pulse Oximetry 94 93 10/12/21 20:10 10/12/21 21:51 10/13/21 00:00 Temperature 36.3 C L Pulse Rate 96 102 H 96 Respiratory Rate 20 16 Blood Pressure 114/49 L Pulse Oximetry 99 10/13/21 02:05 10/13/21 02:15 10/13/21 04:00 Temperature Pulse Rate 95 95 95 Respiratory Rate 20 20 Blood Pressure Pulse Oximetry 10/13/21 05:52 10/13/21 07:50 10/13/21 07:55 Temperature 36.2 C L Pulse Rate 89 88 88 Respiratory Rate 16 20 20 Blood Pressure 128/67 Pulse Oximetry 94 94
[2021-10-13] MEDS: methylPREDNISolone SOD SUCC 125 MG VIAL 60 MG IV PUSH (10:38)
[2021-10-13 12:05] LABS: Glucose Point of Care 179 mg/dl (65-105)
--- NOTE | 2021-10-13 15:29 | PM.IMPN ---
Progress Note: A&P Assessment and Plan (1) Acute respiratory failure with hypoxia: Code(s): J96.01 - Acute respiratory failure with hypoxia Status: Acute Assessment and Plan: Requiring oxygen via nasal cannula Related to diffuse pneumonia. Wean oxygen as tolerated Needed BiPAP temporarily 10/10/2021 now off and on high-flow oxygen nasal cannula requiring 15 L yesterday down to 90 today Echocardiogram reviewed 10/11/2021: EF 60-65% grade 1 diastolic dysfunction E by E prime minimally elevated mild aortic sclerosis mild pulmonary hypertension no other valvular abnormalities noted. (2) Community acquired pneumonia: Code(s): J18.9 - Pneumonia, unspecified organism Status: Acute Assessment and Plan: Presumed community-acquired pneumonia. He has been started on ceftriaxone and azithromycin. Given the extent of his pneumonia, the longevity of his symptoms, and eosinophilia pulmonary consulted. S sputum culture Urine for strep pneumo and Legionella Will also order mycoplasma IgG and IgM, hypersensitivity pneumonitis panel, rheumatoid arthritis factor QUINTIN, IgE COVID negative 10/09/2021 Will hold lisinopril and switch it to losartan. Since start of losartan blood pressure has been improved His and family markers with LDH CRP ferritin are elevated Leukocytosis worsened today likely due to steroid. Continue to monitor and recheck recheck today stable (3) Hypertension: Code(s): I10 - Essential (primary) hypertension Status: Acute Assessment and Plan: Blood pressures were reviewed and they have been running a bit high. Continue lisinopril and monitor daily. Switched to losartan Blood pressure is improved since start of losartan Additional Plan Former smoker History of asthma: Check IgE level, aspergillus antibody All inflammatory markers and panel is been pending reviewed labs Discussedthe patient in detail will try to taper his oxygen down as was 3 can. Will involve case hardener for discharge planning. Subjective Date/time seen: 10/13/21 15:29 Interval history: HPI:This is a 71-year-old male, former smoker, with hypertension and asthma who presented to the emergency department today for evaluation of shortness of breath. He endorses a dry, nonproductive cough for approximately 1 month for which he was tested for COVID approximately 2 weeks ago and was negative. The last 1 week he has begun to feel worse with progressive weakness, generalized malaise, subjective fever, headache, and decreased appetite. His cough has intensified over the past 3 days and he has frequent coughing jags to the point where he will get short of breath. Chest x-ray and chest CT both showed diffuse lung disease in all lung zones, likely pneumonia; no evidence of pulmonary embolism. SARS-CoV-2 by PCR was negative. He has been taking [id number]-[id number] cold and flu medications without much benefit. He is in the area from [place] and is working at [employer]. He has not had any sick contacts to his knowledge. He denies chemical exposure, dysphagia, and concerns for aspiration. He has a history of IV drug use decades ago and has no concerns for HIV. He is not on immunosuppressants. No history of autoimmune disease. 10/10/2021 she continues to have productive cough, remains afebrile reports shortness of breath denies any chest pain 10/11/2021 no overnight events. He is feeling lot better today cough has improved he Peed out quite a bit yesterday no chest pain heart rate has improved use BiPAP for an hour or so yesterday 10/12/2021 no overnight events. Feeling better. Oxygen level has improved he is down to 7 L per currently. Denies any chest pain is still has intermittent cough and shortness of breath and tiredness on exertion. Has not required any BiPAP since day before yesterday. 10/13/2021 no overnight events. Feeling better. Oxygen level is down to 5 L. Wants to go home. He lives in a hotel. Moved from [facility]
[2021-10-13 16:46] LABS: Glucose Point of Care 181 mg/dl (65-105)
[2021-10-13 21:05] LABS: Glucose Point of Care 215 mg/dl (65-105)
[2021-10-14] VITALS (14 sets, daily range): BP systolic 133–148; BP diastolic 69–72; PULSE 81–106; RESP 16–24; TEMP 36.2–36.7; O2SAT 90–98
--- NOTE | 2021-10-14 00:22 | PCRCNOTE ---
Patient asked Rt to not wake them up for their 0200 Tx. Pt stated they wanted to sleep
[2021-10-14 06:06] LABS: Basophils Percent Auto 0.1 % (0.2-1.2); Eosinophils Absolute Auto 0.3 K/mm3 (0-0.3); Eosinophils Percent Auto 1.9 % (0-4.4); Hemoglobin 10.9 g/dL (14.0-18.0); Immature Granulocyte Absolute 0.09 K/mm3 (0.00-0.031); Immature Granulocyte Percent A 0.6 % (0-0.5); Lymphocytes Absolute Auto 2.25 K/mm3 (0.9-3.2); Lymphocytes Percent Auto 15.6 % (18.3-44.2); Mean Corpuscular HGB Conc 32.1 g/dl (32-36); Mean Corpuscular Hemoglobin 30.2 pg (26-34); Mean Corpuscular Volume 94.2 fl (80-100); Mean Platelet Volume 9.4 fl (7.4-10.4); Monocytes Absolute Auto 1.3 K/mm3 (0.1-0.6); Monocytes Percent Auto 8.9 % (2.6-8.5); Neutrophils Absolute Auto 10.5 K/mm3 (1.3-6.7); Neutrophils Percent Auto 72.9 % (45.5-73.1); Platelet Count Result 344 k/mm3 (150-375); Red Blood Count 3.61 M/mm3 (4.6-6.20); Red Cell Distribution Width 12.2 % (11.5-14.5); White Blood Count 14.4 K/mm3 (4.5-10.0)
[2021-10-14 06:15] LABS: Alanine Aminotransferase 30 U/L (4-50); Albumin Level 3.1 g/dL (3.5-5.1); Alkaline Phosphatase 63 U/L (38-126); Anion Gap 2 mmol/L (8-16); Aspartate Amino Transferase 32 U/L (17-59); Bilirubin,Total 0.4 mg/dL (0.2-1.3); Blood Urea Nitrogen 23 mg/dL (9-20); Calcium 8.2 mg/dL (8.4-10.2); Carbon Dioxide 31 mmol/L (22-30); Chloride 105 mmol/L (98-107); Estimated CRCL calculation 55 ml/min; Estimated Glomerular Filt Rate > 60; Glucose 95 mg/dL (65-110); Potassium 4.2 mmol/L (3.4-5.0); Sodium 138 mmol/L (137-145)
[2021-10-14 07:48] LABS: Glucose Point of Care 70 mg/dl (65-105)
[2021-10-14] MEDS: ENOXAPARIN 40 MG/0.4 ML SYRINGE SUB-Q (08:41)
[2021-10-14] MEDS: LOSARTAN POTASSIUM 50 MG TABLET PO (08:41)
[2021-10-14] MEDS: methylPREDNISolone SOD SUCC 125 MG VIAL 60 MG IV PUSH (08:42)
[2021-10-14] MEDS: IPRATROPIUM BR 0.02% INH SOLN 0.5 MG/2.5 ML VIAL INHALATION ×3 (08:49→19:48)
[2021-10-14] MEDS: ALBUTEROL SULFATE NEB 2.5 MG/0.5 ML INH INHALATION ×3 (08:49→19:48)
--- NOTE | 2021-10-14 09:32 | PM.PNPUL ---
Progress Note: A&P Assessment and Plan (1) Interstitial lung disease: Code(s): J84.9 - Interstitial pulmonary disease, unspecified Status: Acute Assessment and Plan: 71-year-old man presented with a subacute illness characterized by dry cough, and progressively increasing shortness of breath, that started after a flu-like illness approximately 6 weeks ago prior to this admission. It is not clear whether this flu-like illness was related to COVID 19 infection as patient did not get tested. Chest CT showed bilateral extensive ground-glass infiltrates, with mild bronchiectatic changes, rare cystic lesions, and also lesions consistent with lobular air trapping. The patient has had long history of woodworking. on the basis of the patient's history, the subacute tempo of the disease, and the chest CT findings, the differential diagnosis includes hypersensitivity pneumonitis, NSIP and also organizing pneumonia post COVID. patient with hypoxemic respiratory failure with a blood gas of 7.4 03/15/2073 on 100% non-rebreather on 10/10/2021. Patient required BiPAP 80% on 10/10/2021. 10/13 Patient has been on antibiotics for possible bacterial coinfection. physical exam is also unchanged from yesterday. Yanet 1 antibody negative other immunology tests and serology screening pending. CRP decreased significantly. Will continue with Solu-Medrol 60 mg IV daily starting in a.m.. CXR in am. Rheumatoid factor negative. HIV negative. Urine pneumococcal antigen negative. 10/14 Patient continues to improve clinically. Patient states he is 80% back to normal. Patient states his cough is 90% better. Patient remains on Solu-Medrol 60 mg IV q.day. he tells me he was stable on 4 L nasal cannula last night but the nurse tells me this morning he went for a chest x-ray and had low oxygen. Currently on 6.5 L nasal cannula saturations 92%. Chest x-ray today bilateral alveolar and interstitial infiltrates no change from 10/12. Urine Legionella pending, hypersensitivity pneumonitis panel pending, mycoplasma IgG and IgM pending, hypersensitivity pneumonitis panel pending, anti CCP antibody pending, QUINTIN screen for 11 different at auto antibodies pending, and Anca screen pending. Continue Solu-Medrol 60 mg IV q.day. I will repeat a CT scan on 10/16 after 7 days of steroids to assess infiltrates. will follow with you. Subjective Date/time seen: 10/14/21 09:32 Interval history: 10/10 New consult: 10/10/21 Chief complaint: community-acquired pneumonia,acute respiratory fa Narrative: This 71-year-old male presented with 1 month history of dry cough and progressively increasing shortness of breath. The patient was in his usual state of health until approximately 6 weeks ago when he started having flu-like symptoms with low-grade fever and upper respiratory tract symptoms. He did not have a test for COVID 19 infection. The patient took time off his work and after a few days he returned to work because he felt better. Several days after the acute episode of the flu like illness the patient started having dry cough. He had no fever chills sputum production or wheezing. He tried cough medications [id number] with no improvement. Subsequently he started having shortness of breath initially with exertion. Shortness of breath was not associated with chest pain palpitations orthopnea or hemoptysis. His shortness of breath progressively increased and patient presented to the emergency room. His past medical history is significant for hypertension. He also has history of back pain and knee pain but no history of joint pain or arthritis. At his current workplace he is not exposed to any organic agents. 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 Over the last 2 weeks the patient was tested for COVID on an outpatient basis and reportedly he test
[2021-10-14 11:44] LABS: Glucose Point of Care 117 mg/dl (65-105)
--- NOTE | 2021-10-14 11:55 | PM.IMPN ---
Progress Note: A&P Assessment and Plan (1) Acute respiratory failure with hypoxia: Code(s): J96.01 - Acute respiratory failure with hypoxia Status: Acute Assessment and Plan: Requiring oxygen via nasal cannula Related to diffuse pneumonia. Wean oxygen as tolerated Needed BiPAP temporarily 10/10/2021 now off and on high-flow oxygen nasal cannula initially requiring 15 L now slowly tapering down Echocardiogram reviewed 10/11/2021: EF 60-65% grade 1 diastolic dysfunction E by E prime minimally elevated mild aortic sclerosis mild pulmonary hypertension no other valvular abnormalities noted. (2) Community acquired pneumonia: Code(s): J18.9 - Pneumonia, unspecified organism Status: Acute Assessment and Plan: Presumed community-acquired pneumonia. He has been started on ceftriaxone and azithromycin. Given the extent of his pneumonia, the longevity of his symptoms, and eosinophilia pulmonary consulted. S sputum culture Urine for strep pneumo and Legionella Will also order mycoplasma IgG and IgM, hypersensitivity pneumonitis panel, rheumatoid arthritis factor QUINTIN, IgE COVID negative 10/09/2021 Will hold lisinopril and switch it to losartan. Since start of losartan blood pressure has been improved His and family markers with LDH CRP ferritin are elevated Leukocytosis worsened likely due to steroid. Continues to slowly improve. (3) Hypertension: Code(s): I10 - Essential (primary) hypertension Status: Acute Assessment and Plan: Blood pressures were reviewed and they have been running a bit high. Continue lisinopril and monitor daily. Switched to losartan Blood pressure is improved since start of losartan Additional Plan Former smoker History of asthma: Check IgE level, aspergillus antibody All inflammatory markers and panel is been pending reviewed labs Disposition: Lives in [facility]. Recently moved from [place]. 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 He endorses a dry, nonproductive cough for approximately 1 month for which he was tested for COVID approximately 2 weeks ago and was negative. The last 1 week he has begun to feel worse with progressive weakness, generalized malaise, subjective fever, headache, and decreased appetite. His cough has intensified over the past 3 days and he has frequent coughing jags to the point where he will get short of breath. Chest x-ray and chest CT both showed diffuse lung disease in all lung zones, likely pneumonia; no evidence of pulmonary embolism. SARS-CoV-2 by PCR was negative. He has been taking qqvt-occ-extonor cold and flu medications without much benefit. He is in the area from [place] and is working at [employer]. He has not had any sick contacts to his knowledge. He denies chemical exposure, dysphagia, and concerns for aspiration. He has a history of IV drug use decades ago and has no concerns for HIV. He is not on immunosuppressants. No history of autoimmune disease. 10/10/2021 she continues to have productive cough, remains afebrile reports shortness of breath denies any chest pain 10/11/2021 no overnight events. He is feeling lot better today cough has improved he Peed out quite a bit yesterday no chest pain heart rate has improved use BiPAP for an hour or so yesterday 10/12/2021 no overnight events. Feeling better. Oxygen level has improved he is down to 7 L per currently. Denies any chest pain is still has intermittent cough and shortness of breath and tiredness on exertion. Has not required any BiPAP since day before yesterday. 10/13/2021 no overnight events. Feeling better. Oxygen level is down to 5 L. Wants to go home. He lives in a hotel. Moved from [place] recently
[2021-10-14 12:09] LABS: Anti Cyclic Citrullinated Pept <16 Units (<20)
[2021-10-14 17:01] LABS: Glucose Point of Care 134 mg/dl (65-105)
[2021-10-14 20:22] LABS: Glucose Point of Care 139 mg/dl (65-105)
[2021-10-14] MEDS: ACETAMINOPHEN/CODEINE ELIXIR (*CRX) 120-12 MG/5 ML UDC PO (22:53)
[2021-10-14 23:31] LABS: Legionella pneumophila Ag Ur Not Detected (Not Detected)
[2021-10-15] VITALS (12 sets, daily range): BP systolic 130–139; BP diastolic 60–72; PULSE 75–106; RESP 18–22; TEMP 35.6–36.7; O2SAT 91–99
[2021-10-15 05:53] LABS: Basophils Percent Auto 0.1 % (0.2-1.2); Eosinophils Absolute Auto 0.8 K/mm3 (0-0.3); Eosinophils Percent Auto 6.4 % (0-4.4); Hemoglobin 11.5 g/dL (14.0-18.0); Immature Granulocyte Absolute 0.14 K/mm3 (0.00-0.031); Immature Granulocyte Percent A 1.1 % (0-0.5); Lymphocytes Absolute Auto 2.39 K/mm3 (0.9-3.2); Lymphocytes Percent Auto 18.1 % (18.3-44.2); Mean Corpuscular HGB Conc 31.9 g/dl (32-36); Mean Corpuscular Hemoglobin 30.5 pg (26-34); Mean Corpuscular Volume 95.5 fl (80-100); Mean Platelet Volume 9.5 fl (7.4-10.4); Monocytes Absolute Auto 1.1 K/mm3 (0.1-0.6); Monocytes Percent Auto 8.3 % (2.6-8.5); Neutrophils Absolute Auto 8.7 K/mm3 (1.3-6.7); Platelet Count Result 351 k/mm3 (150-375); Red Blood Count 3.77 M/mm3 (4.6-6.20); Red Cell Distribution Width 12.2 % (11.5-14.5); White Blood Count 13.2 K/mm3 (4.5-10.0)
[2021-10-15 06:01] LABS: Alanine Aminotransferase 30 U/L (4-50); Albumin Level 3.2 g/dL (3.5-5.1); Alkaline Phosphatase 62 U/L (38-126); Anion Gap 4 mmol/L (8-16); Aspartate Amino Transferase 33 U/L (17-59); Bilirubin,Total 0.5 mg/dL (0.2-1.3); Blood Urea Nitrogen 21 mg/dL (9-20); Calcium 8.2 mg/dL (8.4-10.2); Carbon Dioxide 29 mmol/L (22-30); Chloride 104 mmol/L (98-107); Estimated CRCL calculation 55 ml/min; Estimated Glomerular Filt Rate > 60; Glucose 92 mg/dL (65-110); Potassium 4.2 mmol/L (3.4-5.0); Sodium 137 mmol/L (137-145)
[2021-10-15] MEDS: IPRATROPIUM BR 0.02% INH SOLN 0.5 MG/2.5 ML VIAL INHALATION (07:58)
[2021-10-15] MEDS: ALBUTEROL SULFATE NEB 2.5 MG/0.5 ML INH INHALATION (07:58)
[2021-10-15 08:46] LABS: Glucose Point of Care 78 mg/dl (65-105)
--- NOTE | 2021-10-15 08:54 | PM.PNPUL ---
Progress Note: A&P Assessment and Plan (1) Interstitial lung disease: Code(s): J84.9 - Interstitial pulmonary disease, unspecified Status: Acute Assessment and Plan: 71-year-old man presented with a subacute illness characterized by dry cough, and progressively increasing shortness of breath, that started after a flu-like illness approximately 6 weeks ago prior to this admission. It is not clear whether this flu-like illness was related to COVID 19 infection as patient did not get tested. Chest CT showed bilateral extensive ground-glass infiltrates, with mild bronchiectatic changes, rare cystic lesions, and also lesions consistent with lobular air trapping. The patient has had long history of woodworking. on the basis of the patient's history, the subacute tempo of the disease, and the chest CT findings, the differential diagnosis includes hypersensitivity pneumonitis, NSIP and also organizing pneumonia post COVID. patient with hypoxemic respiratory failure with a blood gas of 7.4 03/15/2073 on 100% non-rebreather on 10/10/2021. Patient required BiPAP 80% on 10/10/2021. 10/13 Patient has been on antibiotics for possible bacterial coinfection. physical exam is also unchanged from yesterday. Yanet 1 antibody negative other immunology tests and serology screening pending. CRP decreased significantly. Will continue with Solu-Medrol 60 mg IV daily starting in a.m.. CXR in am. Rheumatoid factor negative. HIV negative. Urine pneumococcal antigen negative. 10/14 Patient continues to improve clinically. Patient states he is 80% back to normal. Patient states his cough is 90% better. Patient remains on Solu-Medrol 60 mg IV q.day. he tells me he was stable on 4 L nasal cannula last night but the nurse tells me this morning he went for a chest x-ray and had low oxygen. Currently on 6.5 L nasal cannula saturations 92%. Chest x-ray today bilateral alveolar and interstitial infiltrates no change from 10/12. Urine Legionella pending, hypersensitivity pneumonitis panel pending, mycoplasma IgG and IgM pending, hypersensitivity pneumonitis panel pending, anti CCP antibody pending, QUINTIN screen for 11 different at auto antibodies pending, and Anca screen pending. Continue Solu-Medrol 60 mg IV q.day. I will repeat a CT scan on 10/16 after 7 days of steroids to assess infiltrates. 10/15 Patient continues to slowly improve. Patient on 2 L nasal cannula saturations 90%. Cough is persistent but improved from admission. White blood cell count is 13.2. Patient states he notices no difference with the albuterol and ipratropium nebulizers and I have discontinued them today. I have changed his Solu-Medrol 60 q.day to prednisone 40 mg p.o. q.day starting today. I have discontinued his azithromycin after 6 days. Continue ceftriaxone, today is day 7. CT scan of chest ordered for 10/16 to assess infiltrates. I will perform an overnight oximetry on 1 L nasal cannula to assess oxygen needs at night. will follow with you. Subjective Date/time seen: 10/15/21 08:54 Interval history: 10/14/21 09:32 Interval history: 10/10 New consult: 10/10/21 Chief complaint: community-acquired pneumonia,acute respiratory fa Narrative: This 71-year-old male presented with 1 month history of dry cough and progressively increasing shortness of breath. The patient was in his usual state of health until approximately 6 weeks ago when he started having flu-like symptoms with low-grade fever and upper respiratory tract symptoms. He did not have a test for COVID 19 infection. The patient took time off his work and after a few days he returned to work because he felt better. Several days after the acute episode of the flu like illness the patient started having dry cough. He had no fever chills sputum production or wheezing. He tried cough medications [id number] with no improvement. Subsequently he started having shortness of breath initially with
[2021-10-15] MEDS: ENOXAPARIN 40 MG/0.4 ML SYRINGE SUB-Q (09:19)
[2021-10-15] MEDS: LOSARTAN POTASSIUM 50 MG TABLET PO (09:19)
[2021-10-15 12:07] LABS: Glucose Point of Care 141 mg/dl (65-105)
[2021-10-15 12:10] LABS: ANCA Screen Negative (Negative)
[2021-10-15] MEDS: predniSONE 20 MG TABLET 40 MG PO (14:20)
--- NOTE | 2021-10-15 15:54 | PM.IMPN ---
Progress Note: A&P Assessment and Plan (1) Acute respiratory failure with hypoxia: Code(s): J96.01 - Acute respiratory failure with hypoxia Status: Acute Assessment and Plan: Requiring oxygen via nasal cannula Related to diffuse pneumonia. Wean oxygen as tolerated Needed BiPAP temporarily 10/10/2021 now off and on high-flow oxygen nasal cannula initially requiring 15 L now slowly tapering down Echocardiogram reviewed 10/11/2021: EF 60-65% grade 1 diastolic dysfunction E by E prime minimally elevated mild aortic sclerosis mild pulmonary hypertension no other valvular abnormalities noted. (2) Community acquired pneumonia: Code(s): J18.9 - Pneumonia, unspecified organism Status: Acute Assessment and Plan: Presumed community-acquired pneumonia. He has been started on ceftriaxone and azithromycin. Given the extent of his pneumonia, the longevity of his symptoms, and eosinophilia pulmonary consulted. S sputum culture Urine for strep pneumo and Legionella Will also order mycoplasma IgG and IgM, hypersensitivity pneumonitis panel, rheumatoid arthritis factor QUINTIN, IgE COVID negative 10/09/2021 Will hold lisinopril and switch it to losartan. Since start of losartan blood pressure has been improved His and family markers with LDH CRP ferritin are elevated Leukocytosis worsened likely due to steroid. Continues to slowly improve. (3) Hypertension: Code(s): I10 - Essential (primary) hypertension Status: Acute Assessment and Plan: Blood pressures were reviewed and they have been running a bit high. Continue lisinopril and monitor daily. Switched to losartan Blood pressure is improved since start of losartan Additional Plan Former smoker History of asthma: Check IgE level, aspergillus antibody All inflammatory markers and panel is been pending reviewed labs Disposition: Lives in [facility]. Recently moved from [place]. 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 He endorses a dry, nonproductive cough for approximately 1 month for which he was tested for COVID approximately 2 weeks ago and was negative. The last 1 week he has begun to feel worse with progressive weakness, generalized malaise, subjective fever, headache, and decreased appetite. His cough has intensified over the past 3 days and he has frequent coughing jags to the point where he will get short of breath. Chest x-ray and chest CT both showed diffuse lung disease in all lung zones, likely pneumonia; no evidence of pulmonary embolism. SARS-CoV-2 by PCR was negative. He has been taking pert-ivk-oyelnfn cold and flu medications without much benefit. He is in the area from [place] and is working at [employer]. He has not had any sick contacts to his knowledge. He denies chemical exposure, dysphagia, and concerns for aspiration. He has a history of IV drug use decades ago and has no concerns for HIV. He is not on immunosuppressants. No history of autoimmune disease. 10/10/2021 she continues to have productive cough, remains afebrile reports shortness of breath denies any chest pain 10/11/2021 no overnight events. He is feeling lot better today cough has improved he Peed out quite a bit yesterday no chest pain heart rate has improved use BiPAP for an hour or so yesterday 10/12/2021 no overnight events. Feeling better. Oxygen level has improved he is down to 7 L per currently. Denies any chest pain is still has intermittent cough and shortness of breath and tiredness on exertion. Has not required any BiPAP since day before yesterday. 10/13/2021 no overnight events. Feeling better. Oxygen level is down to 5 L. Wants to go home. He lives in a hotel. Moved from [place] recently
[2021-10-15] MEDS: BENZOCAINE/MENTHOL (*BKC) 18 EA LOZENGE 1 LOZENGE PO (16:27)
[2021-10-15] MEDS: guaiFENesin 200 MG/10 ML UDC PO ×2 (16:27→21:43)
[2021-10-15 16:47] LABS: Glucose Point of Care 135 mg/dl (65-105)
[2021-10-15 16:53] LABS: Mycoplasma IgM Antibody Titer 50 U/mL (<770)
--- NOTE | 2021-10-15 22:24 | PCRCNOTE ---
ApneaLink to assess nocturnal O2 needs was ordered by Dr. Ulloa for the night of 10/15/21. I discussed this test with the pt at approximately 19:15. The pt said that he understood why the test was ordered but that he already had trouble sleeping and did not want anything additional done to him when he was trying to sleep. He refused the study. Nurse was informed.
[2021-10-16] VITALS (12 sets, daily range): BP systolic 131–143; BP diastolic 55–75; PULSE 74–108; RESP 18; TEMP 36.1; O2SAT 86–95
[2021-10-16] MEDS: guaiFENesin 200 MG/10 ML UDC PO ×3 (02:08→16:37)
[2021-10-16 07:54] LABS: Glucose Point of Care 93 mg/dl (65-105)
[2021-10-16] MEDS: predniSONE 20 MG TABLET 40 MG PO (08:29)
[2021-10-16] MEDS: BENZOCAINE/MENTHOL (*BKC) 18 EA LOZENGE 1 LOZENGE PO (08:31)
--- NOTE | 2021-10-16 09:48 | PM.PNPUL ---
Progress Note: A&P Assessment and Plan (1) Interstitial lung disease: Code(s): J84.9 - Interstitial pulmonary disease, unspecified Status: Acute Assessment and Plan: 71-year-old man presented with a subacute illness characterized by dry cough, and progressively increasing shortness of breath, that started after a flu-like illness approximately 6 weeks ago prior to this admission. It is not clear whether this flu-like illness was related to COVID 19 infection as patient did not get tested. Chest CT showed bilateral extensive ground-glass infiltrates, with mild bronchiectatic changes, rare cystic lesions, and also lesions consistent with lobular air trapping. The patient has had long history of woodworking. on the basis of the patient's history, the subacute tempo of the disease, and the chest CT findings, the differential diagnosis includes hypersensitivity pneumonitis, NSIP and also organizing pneumonia post COVID. patient with hypoxemic respiratory failure with a blood gas of 7.4 03/15/2073 on 100% non-rebreather on 10/10/2021. Patient required BiPAP 80% on 10/10/2021. 10/13 Patient has been on antibiotics for possible bacterial coinfection. physical exam is also unchanged from yesterday. Yanet 1 antibody negative other immunology tests and serology screening pending. CRP decreased significantly. Will continue with Solu-Medrol 60 mg IV daily starting in a.m.. CXR in am. Rheumatoid factor negative. HIV negative. Urine pneumococcal antigen negative. 10/14 Patient continues to improve clinically. Patient states he is 80% back to normal. Patient states his cough is 90% better. Patient remains on Solu-Medrol 60 mg IV q.day. he tells me he was stable on 4 L nasal cannula last night but the nurse tells me this morning he went for a chest x-ray and had low oxygen. Currently on 6.5 L nasal cannula saturations 92%. Chest x-ray today bilateral alveolar and interstitial infiltrates no change from 10/12. Continue Solu-Medrol 60 mg IV q.day. I will repeat a CT scan on 10/16 after 7 days of steroids to assess infiltrates. 10/15 Patient continues to slowly improve. Patient on 2 L nasal cannula saturations 90%. Cough is persistent but improved from admission. White blood cell count is 13.2. Patient states he notices no difference with the albuterol and ipratropium nebulizers and I have discontinued them today. I have changed his Solu-Medrol 60 q.day to prednisone 40 mg p.o. q.day starting today. I have discontinued his azithromycin after 6 days. Continue ceftriaxone, today is day 7. CT scan of chest ordered for 10/16 to assess infiltrates. I will perform an overnight oximetry on 1 L nasal cannula to assess oxygen needs at night. / 3 Continues to slowly improve. Still has a dry cough. Saturations were recorded at 92 on 3 L this morning. He took his off oxygen off about 10 minutes ago and his room air saturations are 90% currently. Patient had a CT of the chest which shows mild improvement in his diffuse alveolar and interstitial infiltrates. He refused overnight oximetry As he already has a difficult time sleeping with all the wires hooked up to him now. Ready for discharge today. Noticed no difference off of his bronchodilators. Finished antibiotics today. COVID negative. Rheumatoid factor negative. HIV negative. Urine pneumococcal antigen negative. Urine pneumococcal Ag negative, Urine Legionella negative, hypersensitivity pneumonitis panel pending, mycoplasma IgM negative, hypersensitivity pneumonitis panel pending, anti CCP antibody negative, QUINTIN screen for 11 different at auto antibodies pending, and Anca screen negative. Patient is suitable for discharge from a pulmonary perspective on these pulmonary medications. Prednisone 40 mg PO Q day X 14 days then 30 mg PO X 14 days then 20 mg PO X 14 days then 10 mg PO X 14 days. Daytime Oxygen per home O2 assessment which I have ordered. Nocturnal oxygen at the
--- NOTE | 2021-10-16 11:22 | HOMEO2EVAL ---
Evaluation was performed at [facility] Home Oxygen Evaluation RC: Home Oxygen (O2) Evaluation Start: 10/16/21 08:25 Freq: ONCE Status: Active Protocol: RPE Activity Type Activity Date Activity User E-Sign Co-Sign Detail Recorded Client Recorded Date Recorded By Document 10/16/21 10:45 [email or web address] [email or web address] 10/16/21 11:21 DJO Document 10/16/21 10:50 [email or web address] [email or web address] 10/16/21 11:21 DJO Document 10/16/21 10:55 [email or web address] [email or web address] 10/16/21 11:21 DJO Document 10/16/21 11:00 [email or web address] [email or web address] 10/16/21 11:21 DJO Document 10/16/21 11:05 [email or web address] [email or web address] 10/16/21 11:21 DJO Document 10/16/21 11:10 [email or web address] [email or web address] 10/16/21 11:21 DJO 10/16/21 10/16/21 10/16/21 10:45 10:50 10:55 Home O2 Evaluation Test Phase Resting Resting Resting Oxygen Delivery Room Air Nasal Cannula Nasal Cannula Oxygen Flow Rate (L/min) 1 2 Pulse Oximetry (90-100 %) 86 L 88 L 90 Pulse Rate (60-100 beats/min) 89 87 86 Treatment Charges O2 Evaluation - Inpatient 10/16/21 10/16/21 10/16/21 11:00 11:05 11:10 Home O2 Evaluation Test Phase Exercise Exercise Exercise Oxygen Delivery Nasal Cannula Nasal Cannula Nasal Cannula Oxygen Flow Rate (L/min) 2 3 4 Pulse Oximetry (90-100 %) 86 L 88 L 90 Pulse Rate (60-100 beats/min) 99 107 H 108 H Treatment Charges
--- NOTE | 2021-10-16 11:30 | PCRCNOTE ---
HOME O2 SET UP WITH [facility]PIRATORY [facility]. . TANK TO BE DELIVERED TO PATIENTS ROOM TODAY FOR DISCHARGE.
--- NOTE | 2021-10-16 11:54 | PM.DS ---
DS: Admitting Diagnosis Discharge Date 10/16/2021 Admitting Diagnosis shortness of breath. DS: Discharge Diagnosis Discharge Diagnosis (1) Acute respiratory failure with hypoxia: Code(s): J96.01 - Acute respiratory failure with hypoxia Status: Acute Assessment and Plan: Requiring oxygen via nasal cannula Related to diffuse pneumonia. Wean oxygen as tolerated Needed BiPAP temporarily 10/10/2021 now off and on high-flow oxygen nasal cannula initially requiring 15 L now slowly tapering down Echocardiogram reviewed 10/11/2021: EF 60-65% grade 1 diastolic dysfunction E by E prime minimally elevated mild aortic sclerosis mild pulmonary hypertension no other valvular abnormalities noted. (2) Community acquired pneumonia: Code(s): J18.9 - Pneumonia, unspecified organism Status: Acute Assessment and Plan: Presumed community-acquired pneumonia. He has been started on ceftriaxone and azithromycin. Given the extent of his pneumonia, the longevity of his symptoms, and eosinophilia pulmonary consulted. S sputum culture Urine for strep pneumo and Legionella Will also order mycoplasma IgG and IgM, hypersensitivity pneumonitis panel, rheumatoid arthritis factor QUINTIN, IgE COVID negative 10/09/2021 Will hold lisinopril and switch it to losartan. Since start of losartan blood pressure has been improved His and family markers with LDH CRP ferritin are elevated Leukocytosis worsened likely due to steroid. Continues to slowly improve. (3) Hypertension: Code(s): I10 - Essential (primary) hypertension Status: Acute Assessment and Plan: Blood pressures were reviewed and they have been running a bit high. Continue lisinopril and monitor daily. Switched to losartan Blood pressure is improved since start of losartan DS: Summary Hospital Course Reason for hospitalization: Chief Complaint: Shortness of breath. Narrative: This is a 71-year-old male, former smoker, with hypertension and asthma who presented to the emergency department today for evaluation of shortness of breath. He endorses a dry, nonproductive cough for approximately 1 month for which he was tested for COVID approximately 2 weeks ago and was negative. The last 1 week he has begun to feel worse with progressive weakness, generalized malaise, subjective fever, headache, and decreased appetite. His cough has intensified over the past 3 days and he has frequent coughing jags to the point where he will get short of breath. Chest x-ray and chest CT both showed diffuse lung disease in all lung zones, likely pneumonia; no evidence of pulmonary embolism. SARS-CoV-2 by PCR was negative. He has been taking [id number] cold and flu medications without much benefit. He is in the area from [place] and is working at [employer]. He has not had any sick contacts to his knowledge. He denies chemical exposure, dysphagia, and concerns for aspiration. He has a history of IV drug use decades ago and has no concerns for HIV. He is not on immunosuppressants. No history of autoimmune disease. Hospital Course: Interval history: HPI:This is a 71-year-old male, former smoker, with hypertension and asthma who presented to the emergency department today for evaluation of shortness of breath. He endorses a dry, nonproductive cough for approximately 1 month for which he was tested for COVID approximately 2 weeks ago and was negative. The last 1 week he has begun to feel worse with progressive weakness, generalized malaise, subjective fever, headache, and decreased appetite. His cough has intensified over the past 3 days and he has frequent coughing jags to the point where he will get short of breath. Chest x-ray and chest CT both showed diffuse lung disease in all lung zones, likely pneumonia; no evidence of pulmonary embolism. SARS-CoV-2 by PCR was negative. He has been taking [id number] cold and flu medications without much benefit. He is in the area from [place] and is wor
[2021-10-16 11:57] LABS: Glucose Point of Care 144 mg/dl (65-105)
--- NOTE | 2021-10-16 12:12 | PC.NURSE ---
[employer] TECHNICIAN informed nurse that patient is refusing O2 and his tele monitor. Nurse checked on patient and he was found to be on room air laying prone in his bed. Nurse informed patient that he needs his O2 on because he O2 level desats when he is not wearing it. Patient states, I don't know what to tell you because I am not going to wear it. Nurse asked why he wasn't going to wear it. Patient replies that he doesn't need it. Nurse informed patient that he just had a Home O2 evaluation and the PFT informed both nurse and patient that he needs to wear his Oxygen at 2L at rest and 4L when ambulating. Patient is adamant about not wearing oxygen. Nurse then informed patient of the risks of not wearing his oxygen. Patient told nurse that he understands the risk of not wearing is O2 and he still refuses to wear his supplemental O2.
--- NOTE | 2021-12-24 10:00 | PC.NURSE ---
Patient lives in [place]. Discharged on 10/16/21. Disposing bottles of Ibuprofen and Lisinopril.
== END 2021-10-16 16:40 | disposition home or self-care (01) | DRG 189 ==
LOC: ANHED 10:10 → ANH3MEDSUR 11:08 → ANHIMU 10-17 12:19
PROVIDERS: Internal Medicine Pulmonary Disease; Physician Assistant; Admitting Provider Internal Medicine; Emergency Provider Emergency Medicine; Visit Provider Family Medicine
DX: J96.01 Acute respiratory failure with hypoxia (principal); J18.9 Pneumonia, unspecified organism; E87.3 Alkalosis; Z20.822 Contact with and (suspected) exposure to COVID-19; I10 Essential (primary) hypertension; J45.909 Unspecified asthma, uncomplicated; M19.91 Primary osteoarthritis, unspecified site; Z87.891 Personal history of nicotine dependence; Z79.899 Other long term (current) drug therapy; Z79.1 Long term (current) use of non-steroidal anti-inflammatories (NSAID); Z79.51 Long term (current) use of inhaled steroids; R63.0 Anorexia
CPT/HCPCS: 36415; 36600; 71045; 71046; 71250; 71275; 80048; 80053; 81003; 82728; 82805; 82948; 83605; 83615; 83735; 83880; 84484; 85025; 85610; 85730; 86036; 86038; 86140; 86200; 86235; 86331; 86430; 86606; 86609; 86703; 86738; 87040; 87070; 87081; 87205; 87449; 87899; 93005; 93306; 94618; 94640; 96365; 96367; 96372; 96376; 97162; 97165; 99285; A9270; C9803; G0378; G0432; J0456; J0696; J1650; J1940; J2930; J7512; Q9967; U0003; U0005